=== PATIENT | female | born 1965 | race African-American/Black ===

== ENCOUNTER 2019-10-24 16:19 | Outpatient (CLI) | payer OTHER, SELFPAY ==
--- NOTE | 2019-10-24 | ECG_ITS ---
Measurements Intervals [place] Rate: 68 P: 60 NE: 212 QRS: 31 QRSD: 84 T: 44 QT: 382 QTc: 406 Interpretive Statements SINUS RHYTHM WITH FIRST DEGREE AV BLOCK BORDERLINE T WAVE ABNORMALITY- ANT/INF LEADS BASELINE WANDER- II, III, AVF, V3 ABNORMAL ECG Electronically Signed On 10-24-2019 17:25:49 CDT by Ozzy Coffman D.O.
[2019-10-24 17:38] LABS: Blood Urea Nitrogen 9 mg/dL (7-17); Calcium 8.9 mg/dL (8.4-10.2); Carbon Dioxide 31 mmol/L (22-30); Chloride 103 mmol/L (98-107); Estimated Glomerular Filt Rate > 60; Glucose 103 mg/dL (65-105); Potassium 3.7 mmol/L (3.4-5.0); Sodium 140 mmol/L (137-145)
== END 2019-10-24 16:20 | disposition home or self-care (01) ==
DX: Z01.812 Encounter for preprocedural laboratory examination (principal); R94.31 Abnormal electrocardiogram [ECG] [EKG]
CPT/HCPCS: 36415; 80048; 93005

== ENCOUNTER 2024-02-14 11:14 | Emergency (ER) | payer OTHER, SELFPAY ==
[2024-02-14 11:36] VITALS: BP 129/73; PULSE 67; RESP 18; TEMP 36.4; O2SAT 100
--- NOTE | 2024-02-14 12:00 | ED.EYEPROB ---
HPI - Eye Problem General Chief complaint: Eye Problems Stated complaint: left eye red Time Seen by Provider: 02/14/24 12:00 Source: patient Mode of arrival: ambulatory Limitations: no limitations History of Present Illness HPI Narrative: 59-year-old female presents with complaint of redness to left eye. Patient complaining of frontal headache with pressure behind left eye, states she has never experienced symptoms like this before. denies vision changes. Came to [facility] today to get her head checked and her blood pressure . Patient is well-appearing. All systems reviewed and negative except as noted above. Related Data Home Medications Medication Instructions Recorded Confirmed prednisone 5 mg tablet 5 - 15 mg PO DAILY 02/14/24 02/14/24 Allergies Allergy/AdvReac Type Severity Reaction Status Date / Time codeine Allergy Unknown Unknown Unverified 02/14/24 11:51 Review of Systems Review of Systems: CONSTITUTIONAL: Denies fever, chills, or sweats. EYES: Denies visual changes, redness, or discharge. Reports pressure behind left eye with left eye redness but denies left eye pain, vision change ENT: Denies rhinorrhea, congestion, sore throat, or otalgia. CARDIOVASCULAR: Denies chest pain, palpitations, or edema. RESPIRATORY: Denies cough or dyspnea. GASTROINTESTINAL: Denies abdominal pain, nausea, vomiting, or diarrhea. GENITOURINARY: Denies dysuria or hematuria. SKIN: Denies rash or itching. MUSCULOSKELETAL: Denies back pain, joint pain, or myalgia. NEUROLOGIC: Denies headache, numbness, or weakness. PSYCHIATRIC: Denies anxiety or depression. All other systems reviewed are negative, except as documented in HPI. PMFSH Comments At time of signature, agree with nursing past medical, surgical, social and family history. There is no relevant family history pertinent to the presenting complaint. Exam Narrative: GENERAL: This is a well-nourished, well-developed patient, in no apparent distress. HEAD: normocephalic, atraumatic. EYES: PERRL. left subconjunctival hemorrhage. Vision is grossly intact. EARS: External ears normal NOSE: External nose normal NECK: Neck supple, non-tender without lymphadenopathy, masses or thyromegaly. CARDIOVASCULAR: Regular rate and rhythm without murmurs, gallops, or rubs. RESPIRATORY: Clear to auscultation. Breath sounds equal bilaterally. No wheezes, rales, or rhonchi. SKIN: warm, Dry, intact with no suspicious lesions or rash, good texture and turgor. NEURO: awake, alert, and oriented to person, place and time. There were no obvious focal neurologic abnormalities. EXTREMITIES: No joint tenderness, effusion, or edema noted. Course Course Level of Care: Express Care Visit Vital Signs Vital signs: Vital Signs Temperature 36.4 C 02/14/24 11:36 Pulse Rate 67 02/14/24 11:36 Respiratory Rate 18 02/14/24 11:36 Blood Pressure 129/73 02/14/24 11:36 Pulse Oximetry 100 02/14/24 11:36 Oxygen Delivery Room Air 02/14/24 11:36 Temperature 36.4 C 02/14/24 11:36 Pulse Rate 02/14/24 11:36 Respiratory Rate 18 02/14/24 11:36 Blood Pressure 129/73 02/14/24 11:36 Pulse Oximetry 100 02/14/24 11:36 Oxygen Delivery Room Air 02/14/24 11:36 reviewed Transfer Transfered to: [facility] Transportation: Other ( private car) Transfer rationale: transferring patient to ER for head CT due to new onset headache, left eye pressure Accepting physician: LINDY Llanos MDM - Eye Problem MDM Narrative Medical decision making narrative: Patient is aware of diagnosis, understands and agrees to treatment plan. Anticipatory guidance given. Patient agrees to follow-up as directed and is aware of reasons to seek care at the emergency department. Portions of this record may have been created with voice recognition software transferring patient to ER for head CT new onset headache, left eye pressure. Blood pressure normal today. No n
== END 2024-02-14 12:21 | disposition short-term general hospital (02) ==
PROVIDERS: Emergency Provider Nurse Practitioner Family
DX: R51.9 Headache, unspecified (principal); H11.32 Conjunctival hemorrhage, left eye; M19.90 Unspecified osteoarthritis, unspecified site
CPT/HCPCS: 99212; G0463

== ENCOUNTER 2024-02-14 12:43 | Emergency (ER) | payer OTHER, SELFPAY ==
--- NOTE | ~2024-02-14 | CT_ITS ---
CT brain wo con Ordering provider: Adri Chiu PA-C History: 59 years Female with . headache, sinus pain . Comparison: None. Technique: CT of the head without contrast. Radiation reduction technique utilized. DLP is 605.33 mGy. FINDINGS: BRAIN PARENCHYMA AND CSF SPACES: No midline shift, mass effect or hemorrhage. The brain parenchyma a nd CSF spaces are otherwise normal. Empty sella turcica. VISUALIZED PARANASAL SINUSES: Well aerated. MASTOIDS: Well aerated. BONES: The bones appear intact. SOFT TISSUES: Visualized nasopharynx is normal. Superficial soft tissues are normal. IMPRESSION: No acute intracranial findings. Reviewed, dictated and finalized at location A.
[2024-02-14 12:55] VITALS: BP 138/55; PULSE 70; RESP 16; TEMP 36.5; O2SAT 99
--- NOTE | 2024-02-14 14:52 | ED.EYEPROB ---
HPI - Eye Problem General Chief complaint: Eye Problems Stated complaint: sent from for eye problem Time Seen by Provider: 02/14/24 14:09 Source: patient Mode of arrival: ambulatory Limitations: no limitations History of Present Illness HPI Narrative: This is a 59 year old female that presents to the ER for left eye pain. Reports yesterday she started to have left eye pressure and a headache. She does suffer from sinus issues and migraines. Reports today when she woke up she noted redness in her left eye. She was seen in the urgent care and sent to the ER for further evaluation. Denies fever, vision changes, vomiting, numbness or weakness. Related Data Home Medications Medication Instructions Recorded Confirmed prednisone 5 mg tablet 5 - 15 mg PO DAILY 02/14/24 02/14/24 Allergies Allergy/AdvReac Type Severity Reaction Status Date / Time codeine Allergy Unknown Unknown Verified 02/14/24 16:56 Review of Systems Review of Systems: CONSTITUTIONAL: Denies fever EYES: Reports redness. Denies visual changes, or discharge. ENT: Reports congestion GASTROINTESTINAL: Denies vomiting NEUROLOGIC: Reports headache. Denies numbness, or weakness. All systems reviewed & are unremarkable except as noted in HPI and below PMFSH Past Medical History Medical History (Updated 02/14/24 @ 17:30 by Adri Chiu PA-C) History of rheumatoid arthritis Social History Social History (Updated 02/14/24 @ 15:04 by Adri Chiu PA-C) Smoking status: Never smoker Substance use: never Exam Narrative: GENERAL: Well-appearing, well-nourished, and in no acute distress. HEAD: Normocephalic, atraumatic. EYES: PERRLA and EOMI. Subconjunctival hemorrhage noted in the left eye. Visual acuity 20/20 bilaterally. Eye pressure on the left 13, 12 on the right. eyelid everted, no foreign bodies. No fluorescein stain uptake ENT: Nares clear, no rhinorrhea or epistaxis. Mucous membranes moist. Oropharynx without tonsillar hypertrophy exudate or other lesions. Bilateral TMs pearly carlisle non-bulging NECK: Supple. No adenopathy or masses. CHEST: Clear to auscultation. No respiratory distress. No wheezes rales or rhonchi HEART: Regular rate and rhythm. No murmur heard. Normal peripheral pulses. EXTREMITIES: Normal range of motion. No edema. Strength equal in bilateral upper and lower extremities (5/5) SKIN: Warm, dry, no rash. NEURO: No focal deficits. Alert and oriented x3. Cranial nerves 2-12 grossly intact. Normal gait PSYCH: Normal mood and affect Course Course Emergency Course: patient updated on her workup. Reports relief with a migraine cocktail. Ready for discharge Vital Signs Vital signs: Vital Signs Temperature 97.7 F 02/14/24 12:55 Pulse Rate 70 02/14/24 12:55 Respiratory Rate 16 02/14/24 12:55 Blood Pressure 138/55 L 02/14/24 12:55 Pulse Oximetry 99 02/14/24 12:55 Oxygen Delivery Room Air 02/14/24 12:55 Temperature 97.7 F 02/14/24 12:55 Pulse Rate 69 02/14/24 17:50 Respiratory Rate 16 02/14/24 17:50 Blood Pressure 143/69 H 02/14/24 17:50 Pulse Oximetry 99 02/14/24 17:50 Oxygen Delivery Room Air 02/14/24 12:55 MDM - Eye Problem MDM Narrative Medical decision making narrative: Patient presents to the emergency department for subconjunctival hemorrhage of the left eye. Also reporting a headache. She does report history of migraines, but reported she had not had 1 in a while. She is afebrile and nontoxic appearing. Her vitals are stable. Normal visual acuity and eye pressures. no fluorescein stain uptake. She is neurologically intact. Reports relief of her headache with migraine cocktail. CT brain is normal. Patient was updated on her workup and agrees with plan of care. Instructed to have further follow-up with Ophthalmology and her primary care provider. She was given warnings to return to the ER Differential Diagnosis Differential diagnosis: Likely conjunc
[2024-02-14] MEDS: ACETAMINOPHEN 500 MG TABLET 1000 MG PO (15:06)
[2024-02-14] MEDS: SODIUM CHLORIDE 0.9% IV 1,000 ML 999 ML IV CONT (15:10)
[2024-02-14] MEDS: METOCLOPRAMIDE HCL INJ 10 MG/2 ML VIAL IV PUSH (15:11)
[2024-02-14] MEDS: diphenhydrAMINE HCl INJ 50 MG/ML VIAL 25 MG IV PUSH (15:12)
[2024-02-14 17:50] VITALS: BP 143/69; PULSE 69; RESP 16; O2SAT 99
== END 2024-02-14 17:50 | disposition home or self-care (01) ==
PROVIDERS: Emergency Provider Physician Assistant
DX: H11.32 Conjunctival hemorrhage, left eye (principal); R51.9 Headache, unspecified; M06.9 Rheumatoid arthritis, unspecified; Z79.52 Long term (current) use of systemic steroids
CPT/HCPCS: 70450; 96361; 96374; 96375; 99284; A9270; J1200; J2765; J7030

== ENCOUNTER 2025-06-19 08:42 | Emergency (ER) | payer OTHER, SELFPAY ==
--- NOTE | ~2025-06-19 | CT_ITS ---
EXAMINATION: CT brain wo con DATE: 06/19/2025 12:40 INDICATION: Headache TECHNIQUE: Computed tomography (CT) of the head was performed without intravenous contrast. Sagittal and coronal reconstructions were performed. The mA was adjusted according to patient size. Iterative reconstruction technique was employed. The dose-length product was 529.67 mGy-cm. COMPARISON: head CT dated 02/14/24 FINDINGS: No acute intracranial hemorrhage, acute infarction or abnormal extra axial fluid collection. Ventricles are normal and symmetric. Again seen is a empty sella turcica with small amount of pituitary tissue flattened along the floor of the otherwise CSF filled sella which can be seen with increased intracranial pressures.. No mass/mass effect. The orbits, paranasal sinuses and mastoid air cells are normal. IMPRESSION: 1. Unchanged empty sella. No acute intracranial process. Reviewed, dictated and finalized at location A. 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
[2025-06-19 08:44] VITALS: BP 131/76; PULSE 72; RESP 18; TEMP 36.8; O2SAT 100
--- OUTSIDE RECORDS SUMMARY | 2025-06-19 09:02 | XMS_ITS | Patient Health Record ---
Author Organization [facility] Address [address] [place], [place] [id number] Care Team Providers Care Federal Mediation Commissioner Name Role Phone BRIAN RODARTE Unavailable [phone] Alisha Broussard Unavailable Unavailable Reason For Referral No Information Medications Medication SIG (Take, Route, Frequency, Duration) Notes Start Date End Date Status ammonium lactate 120 MG/ML Topical Lotion [Lac-Hydrin] CUTANEOUS ammonium lactate 120 MG/ML Topical Lotion [Lac-Hydrin]Original Medicationammonium lactate 120 MG/ML Topical Lotion [Lac-Hydrin] *Reorder from [employer] for eRx and Interaction Alerts* 06/07/2015 Active Atenolol 50 MG Oral Tablet ORAL atenolol 50 MG Oral TabletOriginal Medicationatenolol 50 MG Oral Tablet *Reorder from [employer] for eRx and Interaction Alerts* 04/10/2017 Active Social History Social History Additional Details Category Social Info Options Details Migrated Social History Migrated Social History History of tobacco use : , Smoking Status : Former smoker Plan Of Treatment No Information Insurance Providers Payer Name Payer Address Payer Phone Subscriber Number Group Number Insured Name Patient Relationship to Insured Coverage Start Date Coverage End Date [facility] [address] [address] [place] [address] [id number] ILIA MOORE Self - patient is the insured
--- OUTSIDE RECORDS SUMMARY | 2025-06-19 09:02 | XMS_ITS | Clinical Summary ---
Author Organization [facility] Address [address] [place] [address] Care Team Providers Care Mosaicist Name Role Phone Alisha Broussard MD Primary Care Provider [phone] Allergies No known active allergies Medications predniSONE 5 mg tablet Take 5 mg by mouth daily. Active gabapentin 600 MG tablet Take 600 mg by mouth 2 (two) times daily. Active celecoxib 200 MG capsule TAKE 1 CAPSULE BY MOUTH TWICE A DAY NEEDED 09/30/2021 Active Social History Tobacco Use Types Packs/Day Years Used Date Smoking Tobacco: Never Smokeless Tobacco: Never Alcohol Use Standard Drinks/Week Comments Never 0 (1 standard drink = 0.6 oz pur e alcohol) Comments No Sex and Gender Information Value Date Recorded Sex Assigned at Not on file Legal Sex Female 7:22 PM CDT Gender Identity Not on file Sexual Orientation Not on file Last Filed Vital Signs Vital Sign Reading Time Taken Comments Blood Pressure 137/82 11/09/2021 8:24 AM CDT Pulse 74 11/09/2021 8:24 AM CDT Temperature 36.2 C (97.1 F) 11/09/2021 8:24 AM CDT Respiratory Rate 18 11/09/2021 8:24 AM CDT Oxygen Saturation 98% 11/09/2021 8:24 AM CDT Inhaled Oxygen Concentration - - Weight 119.3 kg (263 lb) 11/09/2021 8:24 AM CDT Height 170.2 cm (5' 7) 11/09/2021 8:24 AM CDT Body Mass Index 41.19 11/09/2021 8:24 AM CDT Plan of Treatment Health Maintenance Due Date Last Done Comments Cervical Cancer Screening Pa p Smear (Age 30 to 64) Every 3 Years 1966 Colorectal Cancer Screening Colonoscopy (10 Years) 1966 Annual Physical 1969 DTaP, Tdap and Td Vaccines ( 1 - Tdap) 1985 Cervical Cancer Screening Pa p with HPV Testing (Age 30 to 64) Every 5 Years 02/08/1996 Cervical Cancer Screening wi th HPV 02/08/1996 Mammogram Screening 2006 Pneumococcal Vaccine: 50+ Years (1 of 1 - PCV) 02/08/2016 Zoster Vaccines (1 of 2) 02/08/2016 COVID-19 Vaccine (3 - 2024-2 6 season) 2025 05/14/2021, 04/22/2021 Influenza Adult (#1) 2025 Hepatitis C Completed 06/24/2021 Hepatitis A Vaccines Aged Out No long er eligible based on patient's age to complete this topic Meningococcal B Vaccine Aged Out No l onger eligible based on patient's age to complete this topic Meningococcal Vaccine Aged Out No jose tori eligible based on patient's age to complete this topic RSV Immunizations Under 20 Months Aged Out No longer eligible b ased on patient's age to complete this topic Insurance [facility] Care Teams Mosaicist Relationship Specialty Start Date End Date Alisha Broussard MD [address] [place] [address] PCP - General 08/23/15
--- OUTSIDE RECORDS SUMMARY | 2025-06-19 09:02 | XMS_ITS | Clinical Summary ---
Author Organization [facility] Address [address] [place] [address] Care Team Providers Care Military Cook Name Role Phone Unavailable Primary Care Provider Unavailabl e Source Comments [facility],non-owned Affiliates and Associated Physician Practices is amultiple site organization consisting of ambulatory clinics and hospital sitesin [place], [place], [place] and [place]. This disclosure is being madepursuant to the Care Everywhere program and may not contain all information available regarding this patient. 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 Gender Identity Not on file Sexual Orientation Not on file Plan of Treatment Health Maintenance Due Date Last Done Comments COLOGUARD (AGES 45-75) - COL ON CA SCREENING 1966 COLON MONITORING 1966 COLONOSCOPY - COLON CA SCREENING 1966 CT COLONOGRAPHY - COLON CA SCREENING 1966 Colorectal Cancer Screening 1966 FIT - COLON CA SCREENING 1966 FLEX SIG - COLON CA SCREENING 1966 LIPID TESTING 1966 MAMMOGRAM 1966 HIV SCREENING 1981 HEPATITIS C SCREENING 02/03/1984 DTAP/TDAP/TD VACCINES (1 - Tdap) 1985 HEPATITIS B VACCINE (1 of 3 - 19+ 3-dose series) 1985 PNEUMOCOCCAL VACCINE 50+ (1 of 1 - PCV) 02/08/2016 ZOSTER VACCINE (1 of 2) 02/08/2016 DEPRESSION SCREENING 08/13/2024 COVID-19 VACCINE (1 - 2023-2 5 season) 2025 INFLUENZA VACCINE (#1) 2025 HIB VACCINE Aged Out No longer eligi ble based on patient's age to complete this topic HPV VACCINE Aged Out No longer eligi ble based on patient's age to complete this topic MENINGOCOCCAL (Group B) VACC INE SHARED DECISION-MAKING Aged Out No longer eligibl e based on patient's age to complete this topic MENINGOCOCCAL GROUPS A/C/Y/W VACCINE Aged Out No longer eligible b ased on patient's age to complete this topic Insurance
--- OUTSIDE RECORDS SUMMARY | 2025-06-19 09:02 | XMS_ITS | Clinical Summary ---
Author Organization [facility] Address [address] [place] [address] Care Team Providers Care Slab Conditioner Supervisor Name Role Phone Alisha Broussard MD Primary Care Provider Allergies No known active allergies Medications montelukast (SINGULAIR) 10 mg tablet Take 1 tablet (10 mg total) by mouth every evening 3 11/27/2018 Active albuterol HFA (PROVENTIL HFA,VENTOLIN HFA,PROAIR HFA) 90 mcg/actuation inhaler every 4 (four) hours as needed 01/21/2019 Active metoprolol (LOPRESSOR) 25 mg tablet 03/02/2019 Active atenoloL (TENORMIN) 25 mg tablet Take 1 tablet (25 mg total) by mouth daily Active gabapentin (NEURONTIN) 600 mg tablet Take 1 tablet (600 mg total) by mouth 3 (three) times a day 90 tablet 3 07/20/2020 Active pregabalin (LYRICA) 75 mg capsule Take 1 capsule (75 mg total) by mouth 2 (two) times a day for 7 days 14 capsule 07/28/2020 Active pregabalin (LYRICA) 150 mg capsule Take 1 capsule (150 mg total) by mouth 2 (two) times a day 60 capsule 2 07/28/2020 Active tiZANidine (ZANAFLEX) 4 mg tablet Take 1 tablet (4 mg total) by mouth every 6 (six) hours as needed for muscle spasms for up to 30 doses 30 tablet 1 07/28/2020 Active lidocaine (LIDODERM) 5 % APPLY 1 PATCH TO AFFECTED AREA DAILY FOR UP TO 12 HOURS. LEAVE OFF FOR 12 HOURS. 02/28/2021 Active predniSONE (DELTASONE) 20 mg tablet 05/17/2021 Active meloxicam (MOBIC) 15 mg tabletIndicatio ns:Acute pain of left knee,Arthritis of left knee,Degenerati ve tear of meniscus of left knee Take 1 tablet (15 mg total) by mouth daily Take 1 daily with food 30 tablet 02/20/2023 Active Active Problems Problem Noted Date Diagnosed Date Subacromial bursitis of left shoulder joint 02/12 Spondylosis of cervical vianney on without myelopathy or radiculopathy 03/12/2019 Spondylolisthesis at L4-L5 level 03/12/2019 Right-sided low back pain with right-sided sciat ica 12/11/2018 Myalgia, other site 12/11/2018 Surgical History Surgery Date Site/Laterality Comments SHOULDER SURGERY 08/13/2002 - 08/12/2003 FL FLUORO GUIDED LUMBAR PUNCTURE 06/24/2020 Right KNEE SURGERY FL FLUORO GUIDED LUMBAR PUNCTURE 06/14/2021 Right BREAST BIOPSY Left Medical History Medical History Date Comments Migraines DDD (degenerative disc disease), lumbar Anterolisthesis 08/15/2010 Lumbar facet arthropathy 08/15/2010 Spondylolisthesis at L4-L5 level Osteoarthritis, shoulder Family History Medical History Relation Name Comments Cancer Father Breast cancer Maternal Grandmother Breast cancer Mother Cancer Mother Arthritis Other Cancer Other Hypertension Other Relation Name Status Comments Father Alive Maternal Grandmother Mother Alive Other Social History Tobacco Use Types Packs/Day Years Used Date Smoking Tobacco: Never Smokeless Tobacco: Never Alcohol Use Standard Drinks/Week Comments Not Currently 0 (1 standard drink = 0.6 oz pur e alcohol) Comments No Sex and Gender Information Value Date Recorded Sex Assigned at Not on file Legal Sex Female 7:05 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 Gender Identity Not on file Sexual Orientation Not on file 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 Not on file Not on file Obstetrics History Para Term AB IAB SAB Ectopic Multiple Livin g Live Births 3 3 3 Date Outcome GA Total Labor Labor/2nd/3rd Weight Sex Type Anes PTL Ai A1 A5 Name Clin Term Term Term Last Filed Vital Signs Vital Sign Reading Time Taken Comments Blood Pressure 156/90 06/14/2021 12:07 PM CDT Pulse 69 06/14/2021 12:07 PM CDT Temperature 36.1 C (97 F) 04/22/2020 8:57 AM CDT Respiratory Rate 18 06/14/2021 12:0 7 PM CDT Oxygen Saturation 99% 06/14/2021 12: 07 PM CDT Inhaled Oxygen Concentration - - Weight 119.5 kg (263 lb 6.4 oz) 020 12:51 PM OPTICAL INSTRUMENT INSPECTOR Height 170.2 cm (5' 7) 07/06/2020 12:5 1 PM OPTICAL INSTRUMENT INSPECTOR Body Mass Index 41.25 07/06/2020 12:51 PM OPTICAL INSTRUMENT INSPECTOR Plan of Treatment Health Maintenance Due Date Last Done Comments Cervical Cancer Screening 1966 Colon Cancer Screening-Colonoscopy 1966 Depression Screening 1966 Hepatitis C Screening 1966 DTaP/Tdap/Td Vaccine (1 - Tdap) 1977 Hepatitis B Screening 02/08/1984 Regular Well Visit/Exam 18-64 02/08/1984 Zoster Vaccine (1 of 2) 02/08/2016 Breast Cancer Screening-Mammogram 11/09/2022 11/09/2021, 03/17/2017 Covid-19 Vaccine (3 - 2024-2 6 season) 2025 05/14/2021, 04/22/2021 Influenza Vaccine (#1) 2025 Pneumococcal vaccine <65 Aged Out No longer eligible based on patient's age to complete this topic Procedures Procedure Name Priority Date/Time Associated Diagnosis Comments SCREENING MAMMOGRAM BILATERAL W UMAIR Schedule Routine, Read Routine (OP Routine) 11/09/2021 7:46 AM CDT Encounter for other screening for malignant neoplasm of breast from Last 3 Months or Most Recently Relevant to Health Maintenance Results * Screening Mammogram Bilateral W Umair (11/09/2021 7:46 AM CDT) Anatomical Region Laterality Modality Breast Bilateral Mammography Impressions 11/09/2021 8:35 AM CDT BI-RADS ATLAS category (overall): 1 - Negative There is no mammographic evidence of malignancy. A 1 year screening mammogram is recommended. The patient has been or will be contacted. We recommend annual screening mammography for women at average risk of breast cancer beginning at age 40, based on guidelines of the [employer] (ACR Practice Parameter for the Performance of Screening and Diagnostic Mammography) and [place] [employer]. For women with and elevated risk of breast cancer, please refer to the ACR Practice Parameter for specific screening recommendations. The patient will be entered into a reminder system with a target due date of 1 year for her next screening exam. Narrative 11/09/2021 8:35 AM CDT Screening Mammogram Bilateral W Umair: 11/09/21 The study was acquired using full field digital technology and interpreted from soft copy. 2D digital mammographic views, as well as 3D digital tomosynthesis were performed in the CC and MLO projections. CLINICAL: Encounter for other screening for malignant neoplasm of breast. Medical history includes arthritis. History of breast cancer in Mother, Maternal Grandmother. COMPARISONS: 03/22/2017 Screening Mammogram 2D Bilateral BREAST TISSUE: The breasts are almost entirely fatty. FINDINGS: No suspicious masses, suspicious calcifications, or other suspicious findings are seen within either breast. There has been no suspicious change. Alisha Broussard MD IMG MAMMO PROCEDURES F inal Result from Last 3 Months or Most Recently Relevant to Health Maintenance Insurance [facility] Address: [facility] [address] [place] [address] [facility]/PPO Address: [address] [place] [address] [facility]/PPO Address: [address] [place] [address] [employer] [phone] [place] [address] Care Teams Slab Conditioner Supervisor Relationship Specialty Start Date End Date Alisha Broussard MD [address] [place] [address] PCP - General Internal Medicine 03/05/19
--- OUTSIDE RECORDS SUMMARY | 2025-06-19 12:34 | XMS_ITS | Clinical Summary ---
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 For women [...] Most Recently Relevant to Health Maintenance Insurance [facility] [employer] [phone] [place] [address] Care Teams Foreign Food Cook Specialty Relationship Specialty Start Date End Date Alisha Broussard MD [address] [place] [address] PCP - General Internal Medicine 03/05/19
--- OUTSIDE RECORDS SUMMARY | 2025-06-19 12:35 | XMS_ITS | Clinical Summary ---
Author Organization [facility] Address [address] [place] [address] Care Team Providers Care Crib Tender Name Role Phone Unavailable Primary Care Provider Unavailabl e Source Comments [facility],non-owned Affiliates and Associated Physician Practices is amultiple site organization consisting of ambulatory clinics and hospital sitesin [place], [place], [place] and [place]. This disclosure is being madepursuant to the Care Everywhere program and may not contain all information available regarding this patient. 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
--- OUTSIDE RECORDS SUMMARY | 2025-06-19 12:35 | XMS_ITS | Clinical Summary ---
Author Organization [facility] Address [address] [place] [address] Care Team Providers Care Occupational Therapy Aides Teacher Name Role Phone Alisha Broussard MD Primary Care Provider [phone] Allergies No known active allergies Medications predniSONE [...] patient's age to complete this topic Insurance [facility] Care Teams Occupational Therapy Aides Teacher Relationship Specialty Start Date End Date Alisha Broussard MD [address] [place] [address] PCP - General 08/23/15
--- OUTSIDE RECORDS SUMMARY | 2025-06-19 12:35 | XMS_ITS | Data Portability ---
Author Organization [facility] [employer] , [facility]_Sam Address [address] [place] [address] Assessment Encounter Date Assessment Date Assessment LastModified by Organization Details LastModified Time 10/20/2024 10/20/2024 59-year-old female with a history of morbid obesity presenting with challenges in weight management. Not available 10/20/2024 09:28:40 11/20/2024 11/20/2024 A 59-year-old female with a history of morbid obesity presents for management of weight loss and medication adjustment. The patient has shown a successful weight reduction of ten pounds, with continued improvement in knee discomfort likely due to decreased body mass. She reports dietary changes with reduced snacking habits and an increased physical activity regimen, resulting in an elevated therapeutic effect. An intervention involving titration of her medication is planned to further support and sustain her weight management progress. Not available 11/20/2024 09:28:38 12/24/2024 12/24/2024 A 59-year-old female with a history of morbid obesity presents for management of weight loss and medication adjustment. The patient has shown a successful weight reduction of ten pounds, with continued improvement in knee discomfort likely due to decreased body mass. She reports dietary changes with reduced snacking habits and an increased physical activity regimen, resulting in an elevated therapeutic effect. An intervention involving titration of her medication is planned to further support and sustain her weight management progress. Not available 12/24/2024 09:15:46 Plan of Treatment Reminders Order Date Submit Date Provider Last Modified By Organization Details Last Modified Time Details Appointments None recorded. Lab TSH, serum, reflex free T4 2024 025 [facility], [address] [place], [address], 11:36:29 CMP, serum or plasma 2024 025 [facility], [address] [place], [address], 12:53:57 Referral None recorded. Procedures None recorded. Surgeries None recorded. Imaging None recorded. Medication Orders Zepbound 12.5 mg/0.5 mL subcutaneou s solution 2024 025 [email or web address] [facility] #[id number], [address] [place] [address], [address], 13:53:39 Zepbound 10 mg/0.5 mL subcutaneou s pen injector 2024 025 [facility]armacy #[id number], [address] [place] [address], [address], 11:53:37 Zepbound 10 mg/0.5 mL subcutaneou s pen injector 2024 025 [facility]acy #[id number], [address] [place], [address], 09:36:34 Zepbound 12.5 mg/0.5 mL subcutaneou s pen injector 2024 025 [email or web address] [facility] #[id number], [address] [place], [address], 09:11:05 Zepbound 10 mg/0.5 mL subcutaneou s pen injector 2024 025 [email or web address] [facility] #[id number], [address] [place], [address], 09:09:44 Patient TargetsNo targets recorded. Patient Instructions Encounter Date Encounter Id Patient Instructions Last Modified By Organization Details Last Modified Time 11/20/2024 [id number] - Continue to fo cus on protein and balanced meals throughout the day, particularly ensuring adequate nutritional intake. - Maintain increased physical activity by participating in walking sessions every Sunday and . - Return for follow-up in one month to reassess weight loss progress and evaluate the medication dosage adjustment. - Report any new or worsening symptoms such as gastrointestinal issues to monitor the effects of the medication change. - Stay hydrated and prioritize a balanced diet to support general health and wellness. Not available 11/20/2024 09:28:51 Reason for Referral None Reported. Results Created Date Observation Date Name Description Value Unit Range Abnormal Flag Note LastModifiedBy Organization Detail LastModifiedTime 10/21/1910/21/2024 TSH W/ REFLE X TO FREE, T4 TSH 1.47 mIU/L 0.55 - 4.78 normal Refer ence Range Femal e aged 18-Ad ult: 0.55- 4.78 Pregn justice Refer ence Range s First Trime ster 0.26- 2.66 Secon d Trime ster 0.55- 2.73 Third Trime ster 0.43- 2.91 Not Available [address] [place], [address], 10/21/2024 11:36:29 10/21/19 25 10/21/2024 COMPR EHENS REESE METAB OLIC PANEL sodium 147 mmol/ L 136 - 145 high Not Available [address] [place], [address], 10/21/2024 12:53:57 10/21/19 25 10/21/2024 COMPR EHENS REESE METAB OLIC PANEL potassium 4.0 mmol/ L 3.5 - 5.1 normal Not Available [address] [place], [address], 10/21/2024 12:53:57 10/21/19 25 10/21/2024 COMPR EHENS REESE METAB OLIC PANEL chloride 108 mmol/ L 98 - 107 high Not Available [address] [place], [address], 10/21/2024 12:53:57 10/21/19 25 10/21/2024 COMPR EHENS REESE METAB OLIC PANEL glucose 86 mg/dL 74 - 106 normal Not Available [address], [address], 10/21/2024 12:53:57 10/21/19 25 10/21/2024 COMPR EHENS REESE METAB OLIC PANEL carbon dioxide 31 mmol/ L 20 - 32 normal Not Available [address], [address], 10/21/2024 12:53:57 10/21/19 25 10/21/2024 COMPR EHENS REESE METAB OLIC PANEL calcium 8.8 mg/dL 8.5 - 10.1 normal Not Available [address], [address], 10/21/2024 12:53:57 10/21/19 25 10/21/2024 COMPR EHENS REESE METAB OLIC PANEL creatinine 0.97 mg/dL 0.60 - 1.00 normal Not Available [address], [address], 10/21/2024 12:53:57 10/21/19 25 10/21/2024 COMPR EHENS REESE METAB OLIC PANEL eGFR 68 mL/mi n/1.7 3m2 >60 normal The eGFR is based on the CKD-E PI 2020 equat ion. To calcu late the new eGFR from a previ ous Creat inine or Cysta tin C resul t, go to [email or web address] :[email or web address] r_[email or web address] culat or Not Available [address], [address], 10/21/2024 12:53:57 10/21/19 25 10/21/2024 COMPR EHENS REESE METAB OLIC PANEL AST 20 U/L 15 - 37 normal Not Available [address], [address], 10/21/2024 12:53:57 10/21/19 25 10/21/2024 COMPR EHENS REESE METAB OLIC PANEL ALT 26 U/L 14 - 59 normal Not Available [address], [address], 10/21/2024 12:53:57 10/21/19 25 10/21/2024 COMPR EHENS REESE METAB OLIC PANEL alk phos 71 U/L 46 - 116 normal Not Available [address], [address], 10/21/2024 12:53:57 10/21/1910/21/2024 COMPR EHENS REESE METAB OLIC PANEL albumin 3.7 g/dL 3.4 - 5.0 normal Not Available [address], [address], 10/21/2024 12:53:57 10/21/1910/21/2024 COMPR EHENS REESE METAB OLIC PANEL protein, total 6.6 g/dL 6.4 - 8.2 normal Not Available [address], [address], 10/21/2024 12:53:57 10/21/19 25 10/21/2024 COMPR EHENS REESE METAB OLIC PANEL bilirubin, total 0.4 mg/dL 0.2 - 1.0 normal Not Available [address], [address], 10/21/2024 12:53:57 10/21/19 25 10/21/2024 COMPR EHENS REESE METAB OLIC PANEL urea nitrogen (BUN) 9 mg/dL 7 - 18 normal Not Available [address], [address], 10/21/2024 12:53:57 Result Notes None recorded. Procedures Surgical History Date Name Laterality Status Provider Name and Address Organization Details Recorded Time 07/01/20 24 Date of Last Pap Smear completed Jigar Trujillo [facility] 04/28/2025 09:50:07 07/01/20 Most Recent Mammogram completed Gautam Pickering [facility] 07/03/2024 14:10:08 04/22/20 hysteroscopy completed Tiki [facility] 03/10/2022 11:14:32 operative procedure on knee completed Tiki [facility] 03/10/2022 11:14:07 operative procedure on shoulder completed Tiki [email or web address] 03/10/2022 11:14:15 Endometrial Ablation completed Autumn Magdy [facility] 07/01/2024 08:56:49 Imaging Results None recorded. Procedure Notes None recorded. Medical Equipment None Reported. Allergies No known drug allergies Medications Name Sig Start Date Stop Date Status Note LastModified by Organization Details LastModified Time celecoxib 200 mg capsule TAKE 1 CAPSULE BY MOUTH TWICE A DAY NEEDED 07/01 completed Not Available Not Available Not Available gabapenti n 600 mg tablet TAKE 1 TABLET BY MOUTH TWICE A DAY 07/01 completed Not Available Not Available Not Available azithromy simon 250 mg tablet TAKE 2 TABLETS BY MOUTH TODAY, THEN TAKE 1 TABLET DAILY FOR 4 DAYS DIRECTED 09/05 completed Not Available Not Available Not Available ibuprofen 800 mg tablet TAKE 1 TABLET BY MOUTH THREE TIMES A DAY NEEDED WITH MEALS 11/16 completed Not Available Not Available Not Available hydrocodo ne 5 mg-acetam inophen 325 mg tablet TAKE 1/2 -1 TAB BY MOUTH EVERY 4-6 HOURS NEEDED FOR PAIN 03/10 completed Not Available Not Available Not Available meloxicam 15 mg tablet TAKE 1 TABLET BY MOUTH EVERY DAY WITH FOOD 07/01 completed Not Available Not Available Not Available prednison e 20 mg tablet TAKE 2 TABLETS BY MOUTH EVERY DAY FOR 5 DAYS 01/20 completed Not Available Not Available Not Available prednison e 5 mg tablet TAKE 1-3 TABS BY MOUTH DAILY TO QUICKLY CONTROL ARTHRITI S 06/24 completed Not Available Not Available Not Available atenolol 25 mg tablet take 1 tablet (25 mg) by oral route 2 times per day 07/01 completed atenoloL 25 mg oral tablet RxNorm: [id number] Allow Substitu tion: False Refill Denied: No Refill DateOccu rred: 03/08/20 Edited by: Whitney Hutton ) on 04/05/20 20 Stopped by: Whitney Hutton ) on Not Available Not Available Not Available Diflucan 150 mg tablet take 1 tablet (150 mg) PO now. 04/06 completed Diflucan 150 mg oral tablet RxNorm: [id number] Allow Substitu tion: True Refill Denied: No Edited by: Lourdes Figueroa) on 04/06/20 Stopped by: gay( Lourdes Mayo) on 04/06/20 Not Available Not Available Not Available leflunomi de 10 mg tablet TAKE 1 TABLET BY MOUTH EVERY DAY active Not Available Not Available No t Available metronida zole 500 mg tablet TAKE 1 TABLET (500 MG) BY ORAL ROUTE 2 TIMES PER DAY X 7 DAYS 06/24 completed Not Available Not Available Not Available tramadol 50 mg tablet TAKE 1- 2 TABLET WITH OTC TYLENOL BY ORAL ROUTE THREE NEEDED FOR PAIN 09/05 completed Not Available Not Available Not Available triamcino lone acetonide 0.1 % topical cream APPLY TWO TIMES WEEKLY NEEDED TO AFFECTED AREA. 04/28 completed Not Available Not Available Not Available methotrex ate sodium 2.5 mg tablet TAKE 5 TABLETS BY MOUTH IN THE MORNING AND 5 TABLETS IN THE EVENING ONCE WEEKLY 10/20 completed Not Available Not Available Not Available trazodone 100 mg tablet TAKE 1 TABLET BY MOUTH EVERYDAY AT BEDTIME active Not Available Not Available No t Available gabapenti n 300 mg capsule TAKE 1 CAPSULE BY MOUTH AT NIGHT active Not Available Not Available No t Available folic acid 1 mg tablet TAKE 1 TABLET BY MOUTH EVERY DAY active Not Available Not Available No t Available monteluka st 10 mg tablet TAKE 1 TABLET BY MOUTH EVERY DAY IN THE EVENING active Not Available Not Available No t Available gabapenti n 100 mg capsule TAKE 1 CAPSULE BY MOUTH TWICE A DAY 12/24 completed Not Available Not Available Not Available albuterol sulfate HFA 90 mcg/actua tion aerosol inhaler INHALE 1 PUFF EVERY 4 HOURS NEEDED active Not Available Not Available No t Available fluocinol one 0.01 % scalp oil and shower cap APPLY TO THE AFFECTED AREA NEEDED 04/28 completed Not Available Not Available Not Available chlorhexi dine gluconate 0.12 % mouthwash SWISH AND SPIT 15MLS BY MOUTH TWICE A DAY 03/10 completed Not Available Not Available Not Available sodium fluoride 1.1 % dental paste PLEASE SEE ATTACHED FOR DETAILED DIRECTIO NS 12/24 completed Not Available Not Available Not Available Flowflex COVID-19 Antigen Home Test kit use as directed on package FOR AT home CoVID testing NEEDED 03/06 completed Not Available Not Available Not Available Zepbound 10 mg/0.5 mL subcutane ous pen injector INJECT 10 MG SUBCUTAN EOUSLY WEEKLY active Not Available Not Available No t Available Zepbound 5 mg/0.5 mL subcutane ous pen injector INJECT 5MG UNDER THE SKIN ONCE A WEEK 10/20 completed Not Available Not Available Not Available Zepbound 2.5 mg/0.5 mL subcutane ous pen injector active Not Available Not Available Not Available Zepbound 12.5 mg/0.5 mL subcutane ous pen injector INJECT 12.5 MG SUBCUTAN OUSLY ONCE WEEKLY active Not Available Not Available No t Available Zepbound 7.5 mg/0.5 mL subcutane ous pen injector INJECT 10 MG SUBCUTAN EOUSLY WEEKLY 12/24 completed Not Available Not Available Not Available Klayesta 100,000 unit/gram topical powder APPLY TO THE AFFECTED AREA(S) BY TOPICAL ROUTE 2 TIMES PER DAY as needed 11/16 completed Not Available Not Available Not Available Zepbound 12.5 mg/0.5 mL subcutane ous solution Inject 0.5 mL every week by subcutan eous route. 05/20 completed Not Available Not Available Not Available Vitals Date Recorded Body height Body mass index (BMI) Body weight Systolic And Diastolic Provider Name and Address Organization Details Last Updated DateTime 10/20/2024 170.18 cm 41.2 kg/m2 382079.7 9 g 106/68 mm[Hg] Mercy Maravilla [facility] 10/20/2024 09:10:29 Date Recorded Body height Body mass index (BMI) Body weight Systolic And Diastolic Provider Name and Address Organization Details Last Updated DateTime 11/20/2024 170.18 cm 40.4 kg/m2 255863.83 g 118/72 mm[Hg] Cali Pelayo [facility] 11/20/2024 09:14:20 Date Recorded Body height Body mass index (BMI) Body weight Systolic And Diastolic Provider Name and Address Organization Details Last Updated DateTime 12/24/2024 170.18 cm 40.1 kg/m2 299190.93 g 120/76 mm[Hg] Yolanda Espitia [facility] 12/24/2024 09:10:04 Date Recorded Body height Body mass index (BMI) Body weight Systolic And Diastolic Provider Name and Address Organization Details Last Updated DateTime 01/20/2025 170.18 cm 39.9 kg/m2 430658.34 g 130/78 mm[Hg] Elizabeth Espitia [facility] 01/20/2025 09:14:46 Date Recorded Body height Body mass index (BMI) Body weight Systolic And Diastolic Provider Name and Address Organization Details Last Updated DateTime 04/28/2025 170.18 cm 39.6 kg/m2 419293.15 g 124/76 mm[Hg] Jigar Trujillo [facility] 04/28/2025 09:42:56 Social History Question Answer Notes LastModified by Organizat ion Details LastModified Time Tobacco Smoking Status Never Smoker Ely dobson, [facility] 03/06/2023 16:09:06 If You Are , What Was Your Level Of Alcohol Consumption Prior To ? None [email or web address] Information not available 07/01/2024 Are You Blind Or Do You Have Difficulty Seeing? No Information not available 03/06/2023 Are You Deaf Or Do You Have Serious Difficulty Hearing? No [email or web address] Information not available 03/06/2023 What Type Of Diet Are You Following? REGULAR [email or web address] Information not available 03/06/2023 What Is The Highest Grade Or Level Of School You Have Completed Or The Highest Degree You Have Received? [id number] [email or web address] Information not available 11/20/2024 How Many Children Do You Have? 3 [email or web address] Information not available 03/06/2023 Are There Any Occupational Health Risks Where You Work? No [email or web address] Information not available 07/01/2024 What Is Your Relationship Status? Information not available 03/06/2023 Are You Sexually Active? Yes [email or web address] Information not available 07/01/2024 How Much Tobacco Do You Smoke? No [email or web address] Information not available 11/20/2024 Have You Used IV Drugs? No [email or web address] Information not available 11/20/2024 Sex: Unknown Functional Status Question Answer Note LastModified by Ulmon ion Details LastModified Time How many times per week do you consume alcohol? Less than 1 time per week [email or web address] Information not available 11/20/2024 Do you use any illicit or recreational drugs? No [email or web address] Information not available 03/06/2023 Do you or have you ever used any other forms of tobacco or nicotine? No [email or web address] Information not available 03/06/2023 What is your level of alcohol consumption? Occasional [email or web address] Information not available 03/06/2023 Do you or have you ever used smokeless tobacco? Never used smokeless tobacco [email or web address] Information not available 11/20/2024 Are you currently employed? Yes [email or web address] Information not available 07/01/2024 What is your occupation? [employer] [email or web address] Information not available 11/20/2024 Do you or have you ever used e-cigarettes or vape? Never used electronic cigarettes [email or web address] Information not available 11/20/2024 What is your exercise level? Moderate [email or web address] Information not available 03/06/2023 Mental Status None recorded. Family History Relationship Description Onset Age of this Age Resolved Age Notes LastModified by Organization Details LastModified Time Father Hypertensive disorder [email or web address] Not available 02/11 11:15:14 Father Malignant neoplasm of colon [email or web address] Not available 2024 09:09:44 Mother Hypertensive disorder [email or web address] Not available 02/11 11:15:14 Mother Malignant neoplasm of breast [email or web address] Not available 02/11 11:15:28 Medical History Condition Response Other Cancer N High Blood Pressure N Colon Cancer N Cytomegalovirus N Hyperthyroidism N MRSA N Breast Cancer N Herpes (HSV) N Blood Transfusion N Lung Cancer N Depression N Hypothyroidism N Incontinence N Panic Attacks N Neurological Disorder N Deep Vein Thrombosis N Anxiety Disorder N Autoimmune disease N Arthritis Y Tuberculosis/Positive PPD N Shingles Y Polycystic Ovarian Syndrome N Infertility N Cervical Cancer N Hematuria N Chlamydia N Stroke N Varicosities N Seasonal allergies N Crohn's Disease N Alzheimer's/Dementia N COPD/Emphysema N Endometriosis N HPV/Genital Warts N IBS (Irritable Bowel Syndrome) N History of Abnormal Pap N High Cholesterol N Liver Disease N Kidney Infection N Fibromyalgia N Ulcer N Kidney Disease N HIV N Gallbladder disease N Sickle Cell Disease/Trait N Von Willebrand disease N ADD/ADHD N Eating Disorder N Anemia Y Diabetes Mellitus (non-insulin dependent ) N Multiple Sclerosis N Ovarian Problems N Gonorrhea N Frequent Urinary Tract infections N Osteopenia N Headaches/migraines Y GERD (reflux) N Ovarian Cancer N Diabetes (insulin dependent) N Seizures/Epilepsy N Breast Problems N Fibroids Y Asthma N Heart Attack N Lupus N Endometrial Cancer N Rubella N Blood Clotting Disorder N Bipolar Disorder N Diabetes Mellitus (during ) N Ulcerative Colitis N Hepatitis N Heart Disease N Pulmonary Embolism N RPR N Chicken Pox Y Osteoporosis N Gynecological History Statement/Question Response Flow Moderate Date of last HPV 07/01/2024 Date of LMP 12/11/2014 HPV Vaccine N Duration of Flow (days) 4 Most Recent Mammogram 07/01/2024 Current Control Method Menopause Age at Menarche 16 If Post Menopausal, Age at Menopause 51 Date of Last Colonoscopy Frequency of Cycle (Q days) 28 Date of Last Pap Smear 07/01/2024 Obstetrics History GPAL:G 3 P 3 0 0 3 Type Value Full Term 3 Living 3 Total 3 Past Encounters Encounter ID Performer Location Encounter Start Date Encounter Closed Date Diagnosis/Indication Diagnosis SNOMED-CT Code Diagnosis ICD10 Code Diagnosis IMO Codes Diagnosis Note [id number] Lori Rudd, [facility] [address] [place] [address] 03/10/2022 17:07:45 03/13/2022 09:22:07 [id number] ROCHELLE ELDER [facility] [address] [place] [address] 03/06/2023 15:50:27 03/06/2023 17:36:09 Gynecologic examination 57640275 Z01.419 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 The patient denies any changes in her medical history. The patient denies any changes in her family medical history. Annual Exam:She reports having no significan t [employer] symptoms.R eports menopause at age 51 Pap History: Last pap 10/2019 NILMShe is not due for a pap smear. Breast History:Stuart mcdaniel denies breast symptoms. Education on Breast Self Awareness given.Mamm ogram: Order sent [facility] Family History:Alex alexandra had breast cancerNega tive for Cervical Cancer, Colon Cancer, Endometria l Cancer and Ovarian Cancer.MYR isk test offered and patient would like to think about it. Social History:Stuart mcdaniel is currently sexually active with a male partner. She denies complaints about sexual activity. Patient reports feeling safe at home from emotional, physical, and verbal abuse.She does desire STD testing. Exercise: Occasional She wears her seat belt. She does not text and drive.The patient denies smoking and recreation al drugs. She denies drinking alcohol. Patient is regularly seen by PCP for preventati ve care: YesCholest natali screening: Managed by PCPQ 5 years >45, HDL LDL triglyceri desColorec jorge Cancer Screening: Colonoscop y- PCP manages, up to date Screening for malignant neoplasm of cervix 918598438 Z12.4 ASCCP guidelines reviewed with patient. Pap Hx: No pap collected today. Pt states understand ing and is amenable to POC. Screening for malignant neoplasm of breast 787441800 Z12.31 Pt educated on breast cancer screening guidelines , and discussed recommenda tion for scheduling imaging at hospital of her choice. Reviewed recommenda tion to have imaging done at same facility if possible as previous screenings . Pt states understand ing of POC. Depression screening 171 339189 Z13.31 PHQ9: 4. Pt educated on normal scoring, and discussed depression precaution s and when to notify HCP/go to ER. Venereal d isease screening 295195993 Z11.3 Pt educated on importance of condom use for protection against STD's. Patient state that she has a hx of RPR, and was recently tested. She was told that she is reactive, but there was not a reflex test completed. Samples collected and sent. Further POC pending lab result review. Pt states understand ing of POC. [id number] Adri Emery MD [address] [address] 07/01/2024 08:55:21 07/01/2024 10:54:38 Gynecologic examination [id number] Z01.419 Comprehens reese examinatio n conducted today in conjunctio n with preventive screenings , including a mammogram and cervical cancer screening. Screening for malignant neoplasm of cervix 982623196 Z12.4 Pap smear and HPV screening conducted as part of routine care. Screening for malignant neoplasm of breast 483032794 Z12.39 Mammograph y performed today. Results to be reviewed upon availabili ty. Depression screening 171 525775 Z13.31 Screening discussed in context with situationa l stressors; no explicit depressive symptoms reported necessitat ing further interventi on currently. Severe obesity 263755111 1 9104 E66.813 E66.01 Z68.41 [id number] Discussion on weight management including previous use of semaglutid e. Considerat ion of new weight loss pharmacoth erapy likely Zepbound; prescripti on instructed with potential insurance approval process outlined. Candidiasis of skin 4988 3006 B37.2 [id number] Interventi on with nystatin powder suggested to manage symptoms aligning with potential intertrigo . Further dermatolog ical assessment if persistent . [id number] Adri Emery MD [address] [address] 09/05/2024 09:46:44 09/05/2024 11:04:32 Morbid obesity 699184416 E66.01 [id number] The patient will continue on pharmacoth erapy with a dosage increase as discussed to enhance weight loss. Emphasis was placed on the importance of regular exercise, recommendi ng 10,000 steps a day or using a walking pad at home, especially given the cold weather challenges . The plan includes tracking her weight regularly, noting non-scale victories such as clothing fit and measuremen ts. Follow-up is planned in one month to assess progress and side effects. [id number] ROCHELLE ELDER [address] [place] [address] 10/20/2024 08:50:37 10/20/2024 12:06:49 Morbid obesity 143960954 E66.01 82622 The patient will continue on pharmacoth erapy with a dosage increase as discussed to enhance weight loss. Emphasis was placed on the importance of regular exercise, recommendi ng 10,000 steps a day or using a walking pad at home, especially given the cold weather challenges . The plan includes tracking her weight regularly, noting non-scale victories such as clothing fit and measuremen ts. Follow-up is planned in one month to assess progress and side effects. Therapeuti c drug monitoring assay 33391178 Z51.81 [id number] CMP and TSH today for monitoring while taking a GLP-1 medication Recommenda tions for monitoring kidney function every 2 months and Thyroid function every 6 months while taking GLP-1. Pt voices understand ing and is agreeable to POC. [id number] Adri Emery MD [facility] [address] [place] [address] 11/20/2024 09:06:02 11/20/2024 09:42:48 Morbid obesity [id number] E66.01 66861 The patient will have her medication dosage increased to facilitate further weight reduction. Weight management will continue to be supported through lifestyle and dietary adjustment s with an emphasis on protein intake and meal balance. 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 Benefit discussed of resistance traning. 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 Benefit discussed of resistance training.- -Reviewed celebratin g the non-scale victories as well as the scale victories. -Rx refilled- Follow up in 3 months The patient was initially evaluated by ROCHELLE Elder, who completed the history examinatio n, and preliminar y assessment . I, Adri Emery MD, entered the room to review and discuss the care plan with the patient. After reviewing the specific findings and documentat ion provided by Dia, I confirmed the diagnosis and care plan, addressing any additional concerns or questions raised by the patient. The final plan of care was developed collaborleanne lehman and has been documented accordingl y. [id number] [facility] [address] [place] [address] 04/28/2025 09:26:26 04/28/2025 10:08:53 Morbid obesity [id number] E66.01 37064 Last weight: 254.8Weigh t today: 252.8+/-: -2 lbBMI today: 39.6 - Has dropped to size 16 from - working on nutrition changes. Baked chicken, more fruits and veggies. Recommend focusing on increasing protein intake to 100 grams daily. Offered Nutrition consult. Patient declined.- Exercise limited due to joint pain. Recommend adding strength training for at least upper body. Needs more exercise. Enrolling in fitness center which provides water aerobics classes- Recommend different solution to joint pain. Needs to limit prednisone use.- No side effects on current dose. Increase to 12.5 mg weekly.- Follow up 6-8 weeks 30 minutes spent reviewing history, counseling and documentat ion of today's patient visit with > 50% in face to face counseling with the patient. Drug-induced obesity [id number] E66.812 E66.1 Z68.39 [id number] Health Concerns Section Related Observation LastModified by Organization Detai ls LastModified Time None Recorded Concern Status LastModified by Organization Details LastModified Time None Recorded Advance Directives Directive None Recorded Payers Insurance Date Sequence Insurance Name Policy Number Policy Osorio Covered Member ID Osorio Member ID Guarantor Name 06/16/2025 1 [facility] [id number] Pam Campos [id number] Pam Campos Notes Date Note Type Note Provider Name and Address Organization Details Recorded Time 10/20/2024 text/html ROS as noted in the HPI Patient presents today to follow up on Zepbound, she is currently on Zepbound 5mg/0.5ml. Patient states she does not feel like the Zepbound is helping her lose weight. Patient does not notice any side effects of the drug at all. Patient states it is not curving her appetite and has only lost 1 lb since the start of the drug. She does endorse going down a pant size and fitting into jeans that she has not been able to get into for year. Patient reports that she has noticed she has lost some inches. DIA LEONARD, ENVIRONMENTAL HEALTH MANAGER [address], [place], [address], [facility] - [employer] 10/20/2024 09:38:17 11/20/2024 text/html Pam is a 59 y.o. here today for weight loss management.Current weight today is 258Patient has lost 5 lb since last visit.BMI today is 40.4Current diet pt says portion control and less snackingType of exercise pt does not exerciseMedications for weight loss zepbound Pt is in need of a refill on the zepbound. The patient is a 59-year-old female presenting with weight loss management following a diagnosis of morbid obesity. The patient has successfully reduced her weight by ten pounds, including a five-pound reduction over the past month. This weight reduction has alleviated pressure on her knees and improved everyday functioning. Her appetite has lessened, particularly in the evenings. She denies experiencing any gastrointestinal adverse effects such as diarrhea or constipation, often consuming construction consultant evening meals due to decreased hunger. Snacks have been reduced, which contributes positively to her dietary management. The patient is actively trying to increase physical activity by participating in a walking program twice a week. Adri Emery MD [facility] [place], [address], [facility] [employer] 11/20/2024 09:29:03 12/24/2024 text/html ROS as noted in the HPI Truvbrunilda is here today for follow up on medication. She is on the Zebound. She states she feels like it is working for her. Last weight 258, today's weight was 255.8 DIA LEONARD, ENVIRONMENTAL HEALTH MANAGER [address] [place], [address], [facility] [employer] 12/24/2024 09:40:42 01/20/2025 text/html ROS as noted in the HPI Truvett 59 y/o female presents for refill / check up on weight loss medication. She is currently on Zepbound, last seen 12/24/2024 weight 255.8 / BMI 40.1, today weight 254.8 / BMI 39.9. Patient states that she feels better and for the first time put on a dress that she would never thought she could wear. Patient also reports she got down to 248, but went to [place] over the weekend and was not doing the greatest with her eating. Patient reports that her insurance is wanting her to have a 3 month supply of medication vs 1 month. Adri Emery MD [address] [place], [address], [facility] [employer] 01/21/2025 11:54:00 04/28/2025 text/html ROS as noted in the HPI Truvbrunilda is a 60 yo female. Pt is here for weight management. Pt is on Zepbound 10 mg. Pt wants to know if she could get a higher dose. Pt last pap was 07/06. Pt is due for mammogram. Adri Emery MD [address] [place], [address], [facility] 04/28/2025 10:43:49 OBGyn Episode Ob Episode Information Episode Created Date Number of Fetuses Patient Bloodtype Patient rh Status Prepregnancy Weight lbs Domestic Partner Domestic Partner Phone Father Name Aircraft Pilot Status 07/01/20 1 CLOSED Fetus Data First Name Last Name Admitted to NICU Weight (g) Sex Living Outcome Pediatric Complications Fetus ID Race Codes Race Delivery Type F Full Term [id number] Alcon Calculation Initial Alcon Date Initial Exam Date Initial Exam Provider Initial Ultrasound Date Last Menstrual Period Date Ultra Sound Weeks Gestation 0 Eighteen To Twenty Week Alcon Update Ultra Sound Date Fundal Height At Umbil Quickening Date Ultra Sound Latest Weeks Gestation Final Alcon Confirmed By Final Alcon Confirmed Date Final Alcon Date Ultra Sound Latest Days Gestation 0 0 Menstrual History Last Menstrual Date Menses Monthly On Bcp Conception Prior Menses Frequency Hcg Plus Date Menarche Onset Age Delivery Information Delivery Date Delivery Type Labor Anesthesia Weeks Gestation Incision Type Labor Labor Length Hrs Delivered By Post Complications Tubal Sterilization Discharge Date Comments 1 Discharge Information Feeding Method Contraceptive Method Maternal HG B and HCT Levels Ob Episode Information Episode Created Date Number of Fetuses Patient Bloodtype Patient rh Status Prepregnancy Weight lbs Domestic Partner Domestic Partner Phone Father Name Aircraft Pilot Status 07/01/20 24 1 CLOSED Fetus Data First Name Last Name Admitted to NICU Weight (g) Sex Living Outcome Pediatric Complications Fetus ID Race Codes Race Delivery Type M Full Term [id number] Alcon Calculation Initial Alcon Date Initial Exam Date Initial Exam Provider Initial Ultrasound Date Last Menstrual Period Date Ultra Sound Weeks Gestation 0 Eighteen To Twenty Week Alcon Update Ultra Sound Date Fundal Height At Umbil Quickening Date Ultra Sound Latest Weeks Gestation Final Alcon Confirmed By Final Alcon Confirmed Date Final Alcon Date Ultra Sound Latest Days Gestation 0 0 Menstrual History Last Menstrual Date Menses Monthly On Bcp Conception Prior Menses Frequency Hcg Plus Date Menarche Onset Age Delivery Information Delivery Date Delivery Type Labor Anesthesia Weeks Gestation Incision Type Labor Labor Length Hrs Delivered By Post Complications Tubal Sterilization Discharge Date Comments 3 Discharge Information Feeding Method Contraceptive Method Maternal HG B and HCT Levels Ob Episode Information Episode Created Date Number of Fetuses Patient Bloodtype Patient rh Status Prepregnancy Weight lbs Domestic Partner Domestic Partner Phone Father Name Aircraft Pilot Status 07/01/20 24 1 CLOSED Fetus Data First Name Last Name Admitted to NICU Weight (g) Sex Living Outcome Pediatric Complications Fetus ID Race Codes Race Delivery Type F Full Term [id number] Alcon Calculation Initial Alcon Date Initial Exam Date Initial Exam Provider Initial Ultrasound Date Last Menstrual Period Date Ultra Sound Weeks Gestation 0 Eighteen To Twenty Week Alcon Update Ultra Sound Date Fundal Height At Umbil Quickening Date Ultra Sound Latest Weeks Gestation Final Alcon Confirmed By Final Alcon Confirmed Date Final Alcon Date Ultra Sound Latest Days Gestation 0 0 Menstrual History Last Menstrual Date Menses Monthly On Bcp Conception Prior Menses Frequency Hcg Plus Date Menarche Onset Age Delivery Information Delivery Date Delivery Type Labor Anesthesia Weeks Gestation Incision Type Labor Labor Length Hrs Delivered By Post Complications Tubal Sterilization Discharge Date Comments 9 Discharge Information Feeding Method Contraceptive Method Maternal HG B and HCT Levels
[2025-06-19 12:55] LABS: Hematocrit 38.3 % (37.0-47.0); Hemoglobin 11.9 g/dL (12.0-15.0); Immature Granulocyte Percent A 0.2 % (0-0.5); Lymphocytes Absolute Auto 3.00 K/mm3 (0.9-3.2); Mean Corpuscular HGB Conc 31.1 g/dl (32-36); Mean Corpuscular Hemoglobin 27.8 pg (26-34); Mean Corpuscular Volume 89.5 fl (80-100); Nucleated Red Blood Cells Absolute Auto 0.000 K/mm3 (0.0-0.012); Nucleated Red Blood Cells Perc 0.0 % (0.0-0.2); Platelet Count Result 236 k/mm3 (150-375); Red Blood Count 4.28 M/mm3 (4.2-5.4); White Blood Count 5.5 K/mm3 (4.5-10.0)
[2025-06-19 13:05] LABS: INR 0.9; Prothrombin Time 12.8 Seconds (11.1-14.7)
[2025-06-19 13:16] LABS: Anion Gap 7 mmol/L (4-12); Blood Urea Nitrogen 10 mg/dL (7-17); Calcium 8.9 mg/dL (8.4-10.2); Carbon Dioxide 29 mmol/L (22-30); Chloride 104 mmol/L (98-107); Estimated CRCL calculation 77 ml/min; Estimated Glomerular Filt Rate > 60; Glucose 87 mg/dL (65-110); Potassium 4.1 mmol/L (3.4-5.0); Sodium 140 mmol/L (137-145)
--- NOTE | 2025-06-19 13:40 | ED.EYEPROB ---
HPI - Eye Problem General Chief complaint: Eye Problems Stated complaint: EYE REDNESS AND PAIN Time Seen by Provider: 06/19/25 12:09 Source: patient Mode of arrival: ambulatory Limitations: no limitations History of Present Illness HPI Narrative: 60-year-old with a history of for her rheumatoid arthritis here with a complains of bilateral eye redness more so on the left but mild pain since she woke up. She denies any trauma. Patient states that she was sneezing few days ago. She also complains of mild headache. She is not on any anticoagulant. chief complaint: eye pain and eye redness Onset (ago): day(s) (1) Onset description: gradual Duration: constant Eye Symptoms: redness Place: home Mechanism: none Severity: mild Associated symptoms: none Treatments Prior to Arrival: none Related Data Home Medications ?Medication ?Instructions ?Recorded ?Confirmed ?Last Taken ?Type prednisone 5 mg tablet 5 - 15 mg PO DAILY 02/14/24 02/14/24 Unknown History Allergies Allergy/AdvReac Type Severity Reaction Status Date / Time No Known Allergies Allergy Verified 06/19/25 08:44 Review of Systems Review of Systems: All systems reviewed & are unremarkable except as noted in HPI and below Constitutional: Constitutional: Reports no additional constitutional complaints Eyes: Eyes: Reports as per HPI ENT: Reports system reviewed and no additional complaints, except as documented Cardiovascular: Cardiovascular: Reports no additional cardiovascular complaints Respiratory: Respiratory: Reports no additional respiratory complaints Musculoskeletal: Musculoskeletal: Reports no additional musculoskeletal complaints Neurologic: Reports system reviewed and no additional complaints, except as documented [facility] Past Medical History Medical History (Updated 06/19/25 @ 13:51 by Sd Ybarra MD) History of rheumatoid arthritis Social History Social History Substance use: never Exam Narrative: GENERAL: Well-appearing, well-nourished, and in no acute distress. HEAD: Normocephalic, atraumatic. EYES: PERRLA and EOMI. subconjunctival hematoma on both sides more on the left ENT: Nares clear, NECK: Supple. CHEST: Clear to auscultation. No respiratory distress. HEART: Regular rate and rhythm. No murmur heard. Normal peripheral pulses. ABDOMEN: Soft, nontender, nondistended, normal active bowel sounds. EXTREMITIES: Normal range of motion. No edema. SKIN: Warm, dry, no rash. NEURO: No focal deficits. Alert and oriented x3. PSYCH: Normal mood and affect. Course Course Emergency Course: Notified patient about her lab work, CT findings. Advised her to follow with the Ophthalmology. Vital Signs Vital signs: Vital Signs Temperature 36.8 C 06/19/25 08:44 Pulse Rate 72 06/19/25 08:44 Respiratory Rate 18 06/19/25 08:44 Blood Pressure 131/76 06/19/25 08:44 Pulse Oximetry 100 06/19/25 08:44 Oxygen Delivery Room Air 06/19/25 08:44 Temperature 36.8 C 06/19/25 08:44 Pulse Rate 72 06/19/25 08:44 Respiratory Rate 18 06/19/25 08:44 Blood Pressure 131/76 06/19/25 08:44 Pulse Oximetry 100 06/19/25 08:44 Oxygen Delivery Room Air 06/19/25 08:44 MDM - Eye Problem Lab Data 06/19/25 12:47 06/19/25 12:47 Labs: Lab Results 06/19/25 Range/Units 12:47 WBC 5.5 (4.5-10.0) K/mm3 RBC 4.28 (4.2-5.4) M/mm3 Hgb 11.9 L (12.0-15.0) g/dL Hct 38.3 (37.0-47.0) % MCV 89.5 (80-100) fl MCH 27.8 (26-34) pg MCHC 31.1 L (32-36) g/dl RDW 14.4 (11.5-14.5) % Plt Count 236 (150-375) k/mm3 MPV 10.4 (7.4-10.4) fl Immature Gran % (Auto) 0.2 (0-0.5) % Neut % (Auto) 36.8 L (45.5-73.1) % Lymph % (Auto) 54.3 H (18.3-44.2) % [place] % (Auto) 8.0 (2.6-8.5) % Eos % (Auto) 0.5 (0-4.4) % Baso % (Auto) 0.2 (0.2-1.2) % Lymph # (Auto) 3.00 (0.9-3.2) K/mm3 [place] # (Auto) 0.4 (0.1-0.6) K/mm3 Eos # (Auto) 0.0 (0-0.3) K/mm3 Baso # (Auto) 0.0 (0.0-0.1) K/mm3 Abs Immat Gran (auto) 0.01 (0.00-0.031) K/mm3 Absolute Neuts (auto) 2.0 (1.3-6.7) K/mm3 Absolute Nucleated RBC 0.000 (0.0-0.012) K/mm3 Nucleated RBC % 0.0 (0.0-0.2) % PT 12.8 (11.1-14.7) Seconds INR 0.9 Sodium 140 (137-145) mmol/L Potassium 4.1 (3.4-5.0) mmol/L Chloride 104 (98-107) mmol/L Carbon Dioxide 29 (22-30) mmol/L Anion Gap 7 (4-12) mmol/L BUN 10 (7-17) mg/dL Creatinine 0.89 (0.7-1.0) mg/dL Estim Creat Clear Calc 77 ml/min Estimated GFR > 60 (59 - ) Glucose 87 (65-110) mg/dL Calcium 8.9 (8.4-10.2) mg/dL Imaging Data Radiologist's impression: ITS Impressions Head CT 06/19/25 12:41 IMPRESSION: 1. Unchanged empty sella. No acute intracranial process. Discharge Plan Discharge Clinical Impression: Subconjunctival hemorrhage Qualifiers: Laterality: bilateral Qualified Code(s): H11.33 - Conjunctival hemorrhage, bilateral Patient Disposition: Home Condition: Stable Instructions: Antibiotic Form Patient Language: Barbadian Prescriptions: No Action prednisone 5 mg tablet 5 - 15 mg PO DAILY Follow-up/Referrals: Alisha Broussard [Other] [facility] - Anders Marquis [Outside] Time of Disposition: 13:50
== END 2025-06-19 14:06 | disposition home or self-care (01) ==
PROVIDERS: Emergency Provider Family Medicine
DX: H11.33 Conjunctival hemorrhage, bilateral (principal); M06.9 Rheumatoid arthritis, unspecified
CPT/HCPCS: 36415; 70450; 80048; 85025; 85610; 99284